=== PATIENT | female | born 1980 | race Caucasian/White ===

== ENCOUNTER 2023-02-18 07:47 | Day surgery (SDC) | payer BC ==
[2023-02-14 09:10] VITALS: BMI 32.3
[2023-02-14 10:46] LABS: Hematocrit 30.6 % (34.9-44.5); Hemoglobin 9.2 g/dL (12.0-15.5); Mean Corpuscular HGB CONC 30.1 g/dL (32.0-36.0); Mean Corpuscular Volume 83.2 fl (81.6-98.3); Mean Platelet Volume 11.4 fl (7.4-10.4); Platelet Count 414 10x3/uL (150-450); RBC Distribution Width 15.4 % (11.5-14.5); Red Blood Cell (RBC) Count 3.68 10x6/uL (3.90-5.03); White Blood Cell (WBC) Count 4.2 10x3/uL (3.5-10.5)
[2023-02-14 10:51] LABS: BHCG - Serum Negative (NEGATIVE); Pregs Control Background? CLEAR/WHITE (CLR/WHITE); Pregs Control Bar Appear? YES (CONTROL BAR)
[2023-02-18] MEDS ORDERED: CeleCOXIB 100 MG CAP ONE (08:14)
[2023-02-18] MEDS ORDERED: Sevoflurane 250 ML INH ANEST BOTTLE ONE (08:14)
[2023-02-18] MEDS ORDERED: Gabapentin 300 MG CAP ONE (08:14)
[2023-02-18] MEDS ORDERED: Famotidine/PF 20 mg/2ml Vial ONE (08:14)
[2023-02-18] MEDS ORDERED: Rocuronium Bromide 10 MG/ML (10ML VIAL) ONE (08:15)
[2023-02-18] MEDS ORDERED: Ondansetron PF 4 MG/2 ML Vial ONE (08:15)
[2023-02-18] MEDS ORDERED: fentaNYL 50 mcg/mL 1 mL Vial ONE (08:15)
[2023-02-18] MEDS ORDERED: PROPOFOL 20 ML ONE (08:15)
[2023-02-18] MEDS ORDERED: Dexamethasone 4 mg/ml Vial ONE (08:15)
[2023-02-18] MEDS ORDERED: Lidocaine 1% PF 5 ML VIAL ONE (08:15)
[2023-02-18] MEDS ORDERED: Promethazine HCl 25 MG/ML VIAL ONE (08:20)
[2023-02-18] MEDS ORDERED: HYDROmorphone 0.5 MG/0.5 ML SYRINGE ONE (08:20)
[2023-02-18] MEDS ORDERED: EPINEPHrine 1 MG/ML VIAL ONE (08:21)
[2023-02-18] MEDS ORDERED: Bupivacaine PF 0.5% 30 ML VIAL ONE (08:22)
[2023-02-18] MEDS ORDERED: Scopolamine 1.5 mg/72 hour Patch ONE (08:47)
[2023-02-18] MEDS ORDERED: Midazolam HCl 2 mg/2 ml Vial ONE (09:25)
[2023-02-18] MEDS ORDERED: CEFAZOLIN 2 GM VIAL ONE (09:26)
[2023-02-18] MEDS ORDERED: ePHEDrine Sulfate 50 MG/10 ML VIAL ONE (10:00)
[2023-02-18] MEDS ORDERED: PHENYLEPHRINE-NS 100 MCG/ML 10 ML SYRINGE ONE (10:00)
[2023-02-18] MEDS ORDERED: Glycopyrrolate 0.2 MG/ML 5 ML SYRINGE ONE (10:55)
[2023-02-18] MEDS ORDERED: Ropivacaine 0.2% 550 ML 550 ML NERVE BLCK SCH (11:30)
== END 2023-02-18 14:25 | disposition home or self-care (01) ==
LOC: CSHSDC 07:47
PROVIDERS: ATTEND Obstetrics & Gynecology
PROC: 0UT94ZZ Resection of Uterus, Percutaneous Endoscopic Approach (ICD-10-PCS; principal; 2023-02-18)
PROC: 0UB74ZZ Excision of Bilateral Fallopian Tubes, Percutaneous Endoscopic Approach (ICD-10-PCS; principal; 2023-02-18)
DX: N92.0 Excessive and frequent menstruation with regular cycle (principal); N80.00 Endometriosis of the uterus, unspecified; N80.03 Adenomyosis of the uterus; E66.9 Obesity, unspecified; Z68.32 Body mass index [BMI] 32.0-32.9, adult; Z90.49 Acquired absence of other specified parts of digestive tract; Z88.5 Allergy status to narcotic agent; Z88.0 Allergy status to penicillin
CPT/HCPCS: 36415; 84703; 85027; 86850; 86900; 86901; 88307; A4306; J0171; J1100; J1170; J2250; J2405; J2550; J2704; J2795; J3010; Q9968; S0020; S0028